=== PATIENT | male | born 1950 | race Caucasian/White ===

== ENCOUNTER 2021-10-08 07:55 | Day surgery (SDC) | payer MEDICARE ==
[~2021-10-08] VITALS: Ht 180.3 cm; Wt 113.6 kg
[2021-10-08] MEDS ORDERED: DIAZEPAM 5 MG TABLET ONE (08:02)
[2021-10-08] MEDS ORDERED: SODIUM CHLORIDE 0.9% 1,000 ML ONE (08:02)
[2021-10-08] MEDS ORDERED: ASPIRIN 81 MG CHEWABLE TABLET ONE (08:03)
[2021-10-08] MEDS ORDERED: DiphenhydrAMINE HCL 50 MG CAPSULE ONE (08:03)
[2021-10-08] MEDS ORDERED: DIAZEPAM 5 MG TABLET PO ONE (08:15)
[2021-10-08] MEDS ORDERED: SODIUM CHLORIDE 0.9% 1,000 ML IV SCH (08:15)
[2021-10-08] MEDS ORDERED: ASPIRIN 81 MG CHEWABLE TABLET PO ONE (08:15)
[2021-10-08] MEDS ORDERED: DiphenhydrAMINE HCL 50 MG CAPSULE PO ONE (08:15)
[2021-10-08] MEDS ORDERED: RIVA2.5T PO (09:32)
[2021-10-08] MEDS ORDERED: LOSA-382 PO (09:32)
[2021-10-08] MEDS ORDERED: CLOP75TA32 PO (09:32)
[2021-10-08] MEDS ORDERED: METO-408 PO (09:32)
[2021-10-08] MEDS ORDERED: IODIXANOL 320 MG/ML 100 ML VIAL ONE (10:15)
[2021-10-08] MEDS ORDERED: IODIXANOL 320 MG/ML 150 ML VIAL ONE (10:15)
[2021-10-08] MEDS ORDERED: IODIXANOL 320 MG/ML 50 ML VIAL ONE ×2 (10:15→12:49)
[2021-10-08] MEDS ORDERED: HEPARIN SODIUM 1000 UNITS/NS 1,000 ML ONE (10:16)
[2021-10-08] MEDS ORDERED: SODIUM BICARBONATE 50 MEQ/50 ML VIAL ONE (10:16)
[2021-10-08] MEDS ORDERED: LIDOCAINE/PF 1% 30 ML VIAL ONE (10:16)
[2021-10-08 10:23] VITALS: BP 111/59
[2021-10-08] MEDS ORDERED: FentaNYL CITRATE PF 100 MCG/2 ML VIAL ONE ×4 (10:23→13:03)
[2021-10-08] MEDS ORDERED: MIDAZOLAM HCL 2 MG/2 ML VIAL ONE ×3 (10:23→12:34)
[2021-10-08] MEDS ORDERED: IODIXANOL 320 MG/ML 150 ML VIAL IARTER ONE (11:15)
[2021-10-08] MEDS ORDERED: SODIUM CHLORIDE 0.9% 500 ML IV ONE (11:15)
[2021-10-08] MEDS ORDERED: FentaNYL CITRATE PF 100 MCG/2 ML VIAL IVP ONE ×7 (11:15→13:15)
[2021-10-08] MEDS ORDERED: HEPARIN SODIUM 1000 UNITS/NS 1,000 ML IARTER ONE (11:15)
[2021-10-08] MEDS ORDERED: MIDAZOLAM HCL 2 MG/2 ML VIAL IVP ONE ×5 (11:15→13:15)
[2021-10-08] MEDS ORDERED: LIDOCAINE 1% 30 ML/SOD BICARB 8.4% 4 ML SQ ONE (11:15)
[2021-10-08] MEDS ORDERED: HEPARIN SODIUM,PORCINE 5,000 UNITS/ML VIAL IVP ONE ×3 (11:30→11:45)
[2021-10-08 13:13] VITALS: BP 123/59
== END 2021-10-08 17:35 | disposition home or self-care (01) ==
LOC: SDS 07:55
PROVIDERS: ATTEND Internal Medicine Interventional Cardiology
DX: I70.239 Atherosclerosis of native arteries of right leg with ulceration of unspecified site (principal); Z79.899 Other long term (current) drug therapy; I25.10 Atherosclerotic heart disease of native coronary artery without angina pectoris; I10 Essential (primary) hypertension; E78.5 Hyperlipidemia, unspecified; E66.01 Morbid (severe) obesity due to excess calories; Z87.891 Personal history of nicotine dependence; I25.2 Old myocardial infarction; E78.00 Pure hypercholesterolemia, unspecified; Z98.890 Other specified postprocedural states
CPT/HCPCS: 37228; 75630; 93005; 99152; 99153; C1725; C1760; C1887; J1644; J2250; J3010; J3490 ×2; J7030; Q9967 ×3; 36200; 75716; 75962; Z7610